=== PATIENT | female | born 1950 | race Caucasian/White ===

== ENCOUNTER 2017-01-15 07:36 | Emergency (ER) | payer BC ==
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
[2017-01-15] MEDS ORDERED: 0.9 % SODIUM CHLORIDE 1,000 ML BAG IV ONE (08:06)
[2017-01-15 08:19] LABS: BASO % 0.5 % (0-6); EOS % 3.7 % (0-6); GRAN % 45.8 % (47-80); HEMATOCRIT 37.1 % (35.0-47.0); LYMPH % 44.5 % (16-45); MEAN CELL VOLUME 94.9 fl (81-97); MEAN CORPUSCULAR HEMOGLOBIN 33.2 pg (27-33); MEAN PLATELET VOLUME 10.1 fl (7.4-10.4); MONO % 5.5 % (0-9); PLATELET COUNT 100 K/uL (130-400); RED BLOOD COUNT 3.91 M/uL (3.80-5.40); WHITE BLOOD COUNT W/O DIFF 2.2 K/uL (4.2-12.2)
[2017-01-15 08:32] LABS: ALB/GLOB RATIO 1.8 (1.1-1.8); ALBUMIN 4.1 gm/dL (3.5-5.0); ALKALINE PHOSPHATASE 77 U/L (38-126); ALT/SGPT 35 U/L (9-52); ANION GAP 14.7 (7-16); AST/SGOT 20 U/L (14-36); BILIRUBIN,TOTAL 0.48 mg/dL (0.2-1.3); BLOOD UREA NITROGEN 21 mg/dL (7-17); CARBON DIOXIDE 21.3 mmol/L (22-30); CREATINE PHOSPHOKINASE 34 U/L (30-135); CREATININE 1.1 mg/dL (0.52-1.04); EST GLOMERULAR FILTRATION RATE 53 ml/min; GLUCOSE,RANDOM 79 mg/dL (70-110); INR 0.97; PARTIAL THROMBOPLASTIN TIME 25.4 SECONDS (24.5-39.1); TOTAL PROTEIN 6.4 gm/dL (6.3-8.2)
[2017-01-15 08:46] LABS: CKMB 0.3 ug/L (0-6)
[2017-01-15 08:47] LABS: TROPONIN I < 0.012 ng/mL (0.00-0.034)
== END 2017-01-15 10:40 | disposition home or self-care (01) ==
LOC: ER 07:36
DX: R53.1 Weakness (principal); R42 Dizziness and giddiness; R51 Headache; H53.149 Visual discomfort, unspecified
CPT/HCPCS: 70450; 80053; 82550; 82553; 84484; 85025; 85610; 85730; 93005; 93010; 96360; 96361; 99284; J7030

== ENCOUNTER 2017-01-24 06:06 | Emergency (ER) | payer BC ==
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
[2017-01-24] MEDS ORDERED: KETOROLAC 30 MG/ML VIAL IM ONE (06:42)
[2017-01-24] MEDS ORDERED: PROMETHAZINE HCL 25 MG/ML VIAL IM ONE (06:42)
[2017-01-24 06:48] LABS: AMPHETAMINE SCREEN URINE NOT DETECTED; BARBITURATE SCREEN URINE DETECTED; BENZODIAZEPINE SCREEN URINE NOT DETECTED; COCAINE SCREEN URINE NOT DETECTED; METHADONE SCREEN URINE NOT DETECTED; METHAMPHETAMINE SCREEN NOT DETECTED; OPIATE SCREEN URINE NOT DETECTED; OXYCODONE SCREEN URINE NOT DETECTED; PHENCYCLIDINE SCREEN URINE NOT DETECTED; PROPOXYPHENE SCREEN URINE NOT DETECTED; THC SCREEN URINE NOT DETECTED; TRICYCLIC ANTIDEPRESSANT SCRN DETECTED
== END 2017-01-24 07:29 | disposition home or self-care (01) ==
LOC: ER 06:06
DX: R51 Headache (principal); R11.0 Nausea
CPT/HCPCS: 99283 ×2; 96372; 80305; J1885; J2550

== ENCOUNTER 2017-03-13 21:32 | Emergency (ER) | payer BC ==
[2017-03-13] MEDS ORDERED: PROMETHAZINE HCL 25 MG/ML VIAL IM ONE (21:38)
[2017-03-13] MEDS ORDERED: KETOROLAC 30 MG/ML VIAL IM ONE (21:38)
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
== END 2017-03-13 22:34 | disposition home or self-care (01) ==
LOC: ER 21:32
DX: G43.909 Migraine, unspecified, not intractable, without status migrainosus (principal); H53.149 Visual discomfort, unspecified
CPT/HCPCS: 99283 ×2; 96372; J1885; J2550

== ENCOUNTER 2017-04-15 22:14 | Emergency (ER) | payer BC ==
[2017-04-15] MEDS ORDERED: KETOROLAC 30 MG/ML VIAL IM ONE (23:46)
[2017-04-15] MEDS ORDERED: PROMETHAZINE HCL 25 MG/ML VIAL IM ONE (23:46)
[2017-04-16] MEDS ORDERED: DIPHENHYDRAMINE HCL IV 50 MG/ML VIAL IM ONE (00:28)
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
== END 2017-04-16 01:05 | disposition home or self-care (01) ==
LOC: ER 22:14
DX: G43.911 Migraine, unspecified, intractable, with status migrainosus (principal); R11.0 Nausea
CPT/HCPCS: 99283; 96372; 99284; J1885; J1200; J2550

== ENCOUNTER 2017-06-04 22:19 | Emergency (ER) | payer BC ==
[2017-06-04] MEDS ORDERED: PROMETHAZINE HCL 25 MG/ML VIAL IVP ONE (22:43)
[2017-06-04] MEDS ORDERED: KETOROLAC 30 MG/ML VIAL IVP ONE (22:43)
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
[2017-06-04 22:55] LABS: BASO % 0.5 % (0-6); EOS % 1.1 % (0-6); GRAN % 62.4 % (47-80); HEMATOCRIT 41.3 % (35.0-47.0); HEMOGLOBIN 14.8 gm/dl (11.6-16.0); LYMPH % 29.2 % (16-45); MEAN CELL VOLUME 92.8 fl (81-97); MEAN CORPUSCULAR HEMOGLOBIN 33.3 pg (27-33); MEAN CORPUSCULAR HGB CONC 35.8 g/dl (32-36); MONO % 6.8 % (0-9); PLATELET COUNT 107 K/uL (130-400); RED BLOOD COUNT 4.45 M/uL (3.80-5.40); RED CELL DISTRIBUTION WIDTH 12.4 % (11.5-14.5); WHITE BLOOD COUNT W/O DIFF 3.7 K/uL (4.2-12.2)
[2017-06-04 23:06] LABS: ALBUMIN 5.1 gm/dL (3.5-5.0); ANION GAP 15.5 (7-16); BILIRUBIN,TOTAL 0.83 mg/dL (0.2-1.3); CARBON DIOXIDE 18.5 mmol/L (22-30); CREATININE 1.1 mg/dL (0.52-1.04)
[2017-06-04 23:08] LABS: INR 0.98; PARTIAL THROMBOPLASTIN TIME 24.6 SECONDS (24.5-39.1); PROTHROMBIN TIME (PATIENT) 10.6 SECONDS (9.5-12.1)
[2017-06-04] MEDS ORDERED: LORAZEPAM 2 MG/ML VIAL IV ONE (23:17)
[2017-06-04 23:33] LABS: URINE APPEARANCE CLEAR; URINE BILIRUBIN NEGATIVE (NEGATIVE); URINE BLOOD NEGATIVE (NEGATIVE); URINE COLOR YELLOW; URINE GLUCOSE (UA) NEGATIVE (NEGATIVE); URINE KETONE NEGATIVE (NEGATIVE); URINE LEUKOCYTE ESTERASE SMALL (NEGATIVE); URINE NITRITE NEGATIVE (NEGATIVE); URINE PROTEIN NEGATIVE (NEGATIVE); URINE UROBILINOGEN 0.2 E.U./dL (0.20 - 1.00)
[2017-06-04 23:40] LABS: URINE RBC 0 - 2 (NONE SEEN); URINE WBC 0 - 2 (0-2/hpf)
[2017-06-04 23:41] LABS: URINE BACTERIA FEW
[2017-06-05] MEDS ORDERED: LORAZEPAM 2 MG/ML VIAL IV ONE (00:09)
--- NOTE | 2017-06-05 12:06 | CT SCAN REPORT ---
EXAM: CT OF THE BRAIN HISTORY: MIGRAINE HEADACHE. TECHNIQUE: CT of the brain without contrast was obtained. Comparison: Prior CT of the brain from 01/15/17. FINDINGS: The globes are intact. The paranasal sinuses and mastoid air cells are unremarkable. No displaced or depressed skull fracture. No intra or extraaxial hemorrhage. CT is limited for the evaluation of acute infarct. No CT evidence for large or territorial acute infarct. No mass or midline shift. Mild age appropriate atrophy. IMPRESSION: MILD ATROPHY. NEGATIVE FOR ACUTE INTRACRANIAL ABNORMALITY. JOB NUMBER: [id number] [facility]
== END 2017-06-05 01:48 | disposition home or self-care (01) ==
LOC: ER 22:19
DX: G43.909 Migraine, unspecified, not intractable, without status migrainosus (principal); R11.2 Nausea with vomiting, unspecified; F41.9 Anxiety disorder, unspecified; I45.10 Unspecified right bundle-branch block
CPT/HCPCS: 99284 ×2; 96376; 96374; 96375; 85025; 85730; 85610; 80076; 80048; 81001; 70450; J1885; J2060 ×2; J2550

== ENCOUNTER 2017-08-20 13:29 | Emergency (ER) | payer BC ==
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
[2017-08-20] MEDS: PROMETHAZINE HCL 25 MG/ML VIAL IM ONE ×2 (13:52→15:12)
[2017-08-20] MEDS: KETOROLAC 30 MG/ML VIAL IM ONE (13:53)
== END 2017-08-20 15:38 | disposition home or self-care (01) ==
LOC: ER 13:29
DX: G43.909 Migraine, unspecified, not intractable, without status migrainosus (principal); H53.149 Visual discomfort, unspecified; R11.0 Nausea
CPT/HCPCS: 99283 ×2; 96372; J1885; J2550

== ENCOUNTER 2017-09-20 20:51 | Emergency (ER) | payer BC ==
[2017-09-20 21:09] LABS: URINE BILIRUBIN NEGATIVE (NEGATIVE); URINE BLOOD LARGE (NEGATIVE); URINE GLUCOSE (UA) NEGATIVE (NEGATIVE); URINE KETONE NEGATIVE (NEGATIVE); URINE LEUKOCYTE ESTERASE LARGE (NEGATIVE); URINE NITRITE NEGATIVE (NEGATIVE); URINE UROBILINOGEN 0.2 E.U./dL (0.20 - 1.00)
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
[2017-09-20 21:12] LABS: URINE APPEARANCE CLOUDY; URINE COLOR AMBER
[2017-09-20] MEDS ORDERED: NITROFURANTOIN MONO 100 MG CAPSULE PO ONE (21:13)
[2017-09-20 21:15] LABS: URINE BACTERIA 1+; URINE EPITHELIAL CELLS 0 - 2 (FEW); URINE RBC 21 - 35 (NONE SEEN); URINE WBC >50 (0-2/hpf)
== END 2017-09-20 21:28 | disposition home or self-care (01) ==
LOC: ER 20:51
DX: N30.01 Acute cystitis with hematuria (principal)
CPT/HCPCS: 81001; 99282

== ENCOUNTER 2017-12-20 15:49 | Emergency (ER) | payer BC ==
[2017-12-20] MEDS ORDERED: ONDANSETRON HCL IV 4 MG/2 ML VIAL IV ONE (16:18)
[2017-12-20] MEDS ORDERED: 0.9 % SODIUM CHLORIDE 1,000 ML BAG IV ONE (16:18)
[2017-12-20] MEDS ORDERED: MORPHINE SULFATE 5 MG/ML PFS IVP ONE ×2 (16:33→17:57)
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
[2017-12-20 17:21] LABS: BASO % 0.6 % (0-6); EOS % 0.9 % (0-6); GRAN % 67.3 % (47-80); HEMATOCRIT 38.9 % (35.0-47.0); HEMOGLOBIN 13.8 gm/dl (11.6-16.0); LYMPH % 24.3 % (16-45); MEAN CORPUSCULAR HEMOGLOBIN 33.3 pg (27-33); MEAN CORPUSCULAR HGB CONC 35.5 g/dl (32-36); MEAN PLATELET VOLUME 10.4 fl (7.4-10.4); MONO % 6.9 % (0-9); PLATELET COUNT 117 K/uL (130-400); RED BLOOD COUNT 4.14 M/uL (3.80-5.40); RED CELL DISTRIBUTION WIDTH 12.6 % (11.5-14.5); WHITE BLOOD COUNT W/O DIFF 3.3 K/uL (4.2-12.2)
[2017-12-20 17:25] LABS: URINE APPEARANCE CLEAR; URINE BILIRUBIN NEGATIVE (NEGATIVE); URINE BLOOD TRACE-I (NEGATIVE); URINE COLOR YELLOW; URINE GLUCOSE (UA) NEGATIVE (NEGATIVE); URINE KETONE NEGATIVE (NEGATIVE); URINE LEUKOCYTE ESTERASE NEGATIVE (NEGATIVE); URINE NITRITE NEGATIVE (NEGATIVE); URINE PROTEIN NEGATIVE (NEGATIVE); URINE UROBILINOGEN 0.2 E.U./dL (0.20 - 1.00)
[2017-12-20 17:42] LABS: URINE EPITHELIAL CELLS 0 - 2 (FEW); URINE RBC 0 - 2 (NONE SEEN); URINE WBC NONE SEEN (0-2/hpf)
[2017-12-20 17:44] LABS: BLOOD UREA NITROGEN 9 mg/dL (8-23)
[2017-12-20 17:45] LABS: CREATININE 0.9 mg/dL (0.5-0.9); EST GLOMERULAR FILTRATION RATE > 60 mL/min; TOTAL PROTEIN 7.8 g/dL (6.6-8.7)
[2017-12-20 17:47] LABS: GLUCOSE,RANDOM 111 mg/dL (74-109)
[2017-12-20 17:50] LABS: ALBUMIN 5.2 g/dL (4.0-5.0); ALKALINE PHOSPHATASE 71 U/L (35-104); ALT/SGPT 21 U/L (<33); AST/SGOT 22 U/L (10.0-35.0); LIPASE 40 U/L (13-60)
[2017-12-20] MEDS ORDERED: ONDANSETRON HCL IV 4 MG/2 ML VIAL IVP ONE (18:57)
--- NOTE | 2017-12-21 08:39 | CT SCAN REPORT ---
EXAM: CT SCAN OF THE ABDOMEN AND PELVIS HISTORY: PATIENT HAS LOSS OF APPETITE AND DIARRHEA. TECHNIQUE: Serial axial CT scan of the abdomen and pelvis was performed at 3.75 mm intervals from the dome of the diaphragm down to the pubic symphysis without the use of intravenous or oral contrast. Comparison CT scan of the abdomen and pelvis dated 12/15/15. FINDINGS: The lung windows of the lung bases demonstrate no CT evidence of a focal infiltrate or pleural effusion. The visualized heart size and contour is within normal limits. The liver demonstrates a 5.5 mm hypodensity within the right hepatic lobe which is unchanged with respect to the prior CT scan. The spleen, bilateral adrenal glands, and pancreas are unremarkable. The gallbladder is somewhat distended. There is questionable gallbladder wall thickening with questionable mild pericholecystic fat stranding. These findings may indicate mild acute cholecystitis. If there is further clinical concern then ultrasound examination of the right upper quadrant of the abdomen can be obtained for further evaluation. The bilateral kidneys demonstrate no CT evidence of hydronephrosis or hydroureter. No renal or ureteral calculi are noted. The contour and caliber of the abdominal aorta is within normal limits. There is no CT evidence of retroperitoneal, pelvic or inguinal lymphadenopathy. The bowel gas pattern is nonspecific and nonobstructive. Multiple colonic diverticula are noted without CT evidence of diverticulitis. There is no CT evidence of free intraperitoneal fluid or free intraperitoneal air. The urinary bladder and uterus are unremarkable. Bone windows demonstrate no CT evidence of a fracture or dislocation of the visualized osseous structures. IMPRESSION: DISTENDED GALLBLADDER WITH QUESTIONABLE WALL THICKENING AND FAT STRANDING. THESE FINDINGS MAY INDICATE CHOLECYSTITIS. IF THERE IS FURTHER CLINICAL CONCERN THEN AN ULTRASOUND EXAMINATION OF THE RIGHT UPPER QUADRANT CAN BE OBTAINED FOR FURTHER EVALUATION. JOB NUMBER: [id number] [facility]
== END 2017-12-20 19:32 | disposition home or self-care (01) ==
LOC: ER 15:49
DX: K81.0 Acute cholecystitis (principal); R11.2 Nausea with vomiting, unspecified; R19.7 Diarrhea, unspecified; I10 Essential (primary) hypertension
CPT/HCPCS: 99284 ×2; 96376; 96360; 96374; 96375; 83690; 85025; 80053; 81001; 74176; J2405; J2270; J7030

== ENCOUNTER 2017-12-21 08:15 | Emergency (ER) | payer BC ==
[2017-12-21] MEDS ORDERED: 0.9 % SODIUM CHLORIDE 1,000 ML BAG IV ONE (08:24)
[2017-12-21 08:56] LABS: HEMATOCRIT 39.1 % (35.0-47.0); HEMOGLOBIN 13.7 gm/dl (11.6-16.0); MEAN CELL VOLUME 95.8 fl (81-97); MEAN CORPUSCULAR HEMOGLOBIN 33.6 pg (27-33); MEAN PLATELET VOLUME 10.5 fl (7.4-10.4); PLATELET COUNT 96 K/uL (130-400); RED BLOOD COUNT 4.08 M/uL (3.80-5.40); RED CELL DISTRIBUTION WIDTH 12.7 % (11.5-14.5)
[2017-12-21 08:59] LABS: URINE APPEARANCE SL CLOUDY; URINE BILIRUBIN SMALL (NEGATIVE); URINE BLOOD NEGATIVE (NEGATIVE); URINE COLOR YELLOW; URINE GLUCOSE (UA) NEGATIVE (NEGATIVE); URINE KETONE NEGATIVE (NEGATIVE); URINE LEUKOCYTE ESTERASE NEGATIVE (NEGATIVE); URINE NITRITE NEGATIVE (NEGATIVE); URINE UROBILINOGEN 0.2 E.U./dL (0.20 - 1.00)
[2017-12-21 09:07] LABS: BILIRUBIN,TOTAL 0.6 mg/dL (0.2-1.0)
[2017-12-21 09:08] LABS: TOTAL PROTEIN 7.3 g/dL (6.6-8.7)
[2017-12-21 09:13] LABS: ALB/GLOB RATIO 2.3 (1.1-1.8); ALBUMIN 5.1 g/dL (4.0-5.0)
[2017-12-21 09:25] LABS: PLATELET ESTIMATE DECREASED (NORMAL)
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
--- NOTE | 2017-12-21 21:46 | ULTRASOUND REPORT ---
EXAM: ULTRASOUND ABDOMEN, COMPLETE HISTORY: RIGHT UPPER QUADRANT PAIN. TECHNIQUE: Complete transabdominal ultrasound. COMPARISON: CT from 12/20/17. FINDINGS: Tiny hypodensity seen in the liver on CT is not appreciated on the ultrasound. No focal liver lesions. No gallstones or gallbladder wall thickening. The CBD measures 6.4 mm. Visualized portions of the pancreas are unremarkable. The spleen is unremarkable at 10 cm. The right kidney measures 9 x 4 cm, the left 10 x 4 cm. No renal calculus, mass, or hydronephrosis. The visualized portions of the abdominal aorta and inferior vena cava are unremarkable. No free fluid. IMPRESSION: TINY HYPODENSITY SEEN IN THE LIVER ON CT IS NOT APPRECIATED ON THE ULTRASOUND. UNREMARKABLE COMPLETE TRANSABDOMINAL ULTRASOUND. JOB NUMBER: [id number] [facility]
== END 2017-12-21 13:34 | disposition home or self-care (01) ==
LOC: ER 08:15
DX: R10.11 Right upper quadrant pain (principal); R11.2 Nausea with vomiting, unspecified; R63.4 Abnormal weight loss
CPT/HCPCS: 76700; 80053; 81003; 83690; 85027; 99284; J7030

== ENCOUNTER 2018-04-09 19:41 | Emergency (ER) | payer BC ==
[2018-04-09 20:05] LABS: BASO % 0.6 % (0-6); EOS % 2.4 % (0-6); HEMATOCRIT 41.6 % (35.0-47.0); HEMOGLOBIN 14.6 gm/dl (11.6-16.0); LYMPH % 38.8 % (16-45); MEAN CELL VOLUME 95.6 fl (81-97); MEAN CORPUSCULAR HEMOGLOBIN 33.6 pg (27-33); MEAN CORPUSCULAR HGB CONC 35.1 g/dl (32-36); MEAN PLATELET VOLUME 10.2 fl (7.4-10.4); MONO % 6.2 % (0-9); PLATELET COUNT 135 K/uL (130-400); RED BLOOD COUNT 4.35 M/uL (3.80-5.40); RED CELL DISTRIBUTION WIDTH 12.8 % (11.5-14.5); WHITE BLOOD COUNT W/O DIFF 3.4 K/uL (4.2-12.2)
[2018-04-09] MEDS ORDERED: ASPIRIN 81 MG CHEWABLE TABLET PO ONE (20:11)
[2018-04-09 20:16] LABS: BLOOD UREA NITROGEN 9 mg/dL (8-23); CREATININE 1.2 mg/dL (0.5-0.9); EST GLOMERULAR FILTRATION RATE 48 mL/min
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
[2018-04-09 20:19] LABS: GLUCOSE,RANDOM 117 mg/dL (74-109)
[2018-04-09 20:22] LABS: CREATINE PHOSPHOKINASE 166 U/L (26-192)
[2018-04-09 20:23] LABS: CKMB 3.2 ng/mL (<3.77)
[2018-04-09] MEDS: NITROGLYCERIN 0.4MG SL TABLET #25 BTL SL PRN ×2 (20:37→20:42)
[2018-04-09] MEDS ORDERED: FENTANYL PF 100MCG/2ML VIAL IVP ONE (20:52)
[2018-04-09] MEDS ORDERED: DIPHENHYDRAMINE HCL 50 MG/ML VIAL IVP ONE (20:52)
== END 2018-04-09 22:07 | disposition short-term general hospital (02) ==
LOC: ER 19:41
DX: R07.2 Precordial pain (principal); I25.118 Atherosclerotic heart disease of native coronary artery with other forms of angina pectoris; R51 Headache; Z95.5 Presence of coronary angioplasty implant and graft
CPT/HCPCS: 71046; 80048; 82550; 82553; 84484; 85025; 85379; 93005; 93010; 96374; 96375; 99285; J1200

== ENCOUNTER 2018-05-03 | Emergency (ER) | payer BC ==
[2018-05-03] MEDS ORDERED: PROMETHAZINE HCL 25 MG/ML VIAL IM ONE (00:22)
[2018-05-03] MEDS ORDERED: KETOROLAC 30 MG/ML VIAL IM ONE (00:22)
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
[2018-05-03] MEDS ORDERED: ONDANSETRON 4 MG ODT TABLET SL ONE (01:06)
== END 2018-05-03 01:30 | disposition home or self-care (01) ==
LOC: ER
DX: G43.909 Migraine, unspecified, not intractable, without status migrainosus (principal); R11.0 Nausea; I34.0 Nonrheumatic mitral (valve) insufficiency; E03.9 Hypothyroidism, unspecified; D47.3 Essential (hemorrhagic) thrombocythemia
CPT/HCPCS: 96372; 99283; J1885; J2550

== ENCOUNTER 2018-07-17 21:37 | Emergency (ER) | payer BC ==
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
[2018-07-17] MEDS: KETOROLAC 60 MG/2 ML VIAL IM STA (21:59)
[2018-07-17] MEDS: ONDANSETRON 4 MG ODT TABLET SL ONE (21:59)
[2018-07-17] MEDS: PROMETHAZINE HCL 25 MG/ML VIAL IM ONE (22:04)
[2018-07-17 22:27] LABS: URINE APPEARANCE CLEAR; URINE BILIRUBIN NEGATIVE (NEGATIVE); URINE BLOOD NEGATIVE (NEGATIVE); URINE COLOR YELLOW; URINE GLUCOSE (UA) NEGATIVE (NEGATIVE); URINE KETONE NEGATIVE (NEGATIVE); URINE LEUKOCYTE ESTERASE TRACE (NEGATIVE); URINE NITRITE NEGATIVE (NEGATIVE); URINE PROTEIN NEGATIVE (NEGATIVE); URINE UROBILINOGEN 0.2 E.U./dL (0.20 - 1.00)
[2018-07-17 22:29] LABS: URINE BACTERIA NONE SEEN; URINE RBC 0 - 2 (NONE SEEN); URINE WBC 0 - 2 (0-2/hpf)
== END 2018-07-17 23:21 | disposition home or self-care (01) ==
LOC: ER 21:37
DX: R35.0 Frequency of micturition (principal); R51 Headache; Z79.01 Long term (current) use of anticoagulants
CPT/HCPCS: 81001; 96372; 99283; J1885; J2550

== ENCOUNTER 2018-08-03 18:11 | Emergency (ER) | payer BC ==
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
[2018-08-03] MEDS ORDERED: KETOROLAC 30 MG/ML VIAL IM ONE (19:27)
[2018-08-03] MEDS ORDERED: DIPHENHYDRAMINE HCL 50 MG/ML VIAL IM ONE (19:51)
== END 2018-08-03 20:15 | disposition home or self-care (01) ==
LOC: ER 18:11
DX: G43.909 Migraine, unspecified, not intractable, without status migrainosus (principal); H53.149 Visual discomfort, unspecified; Z91.81 History of falling; Z79.01 Long term (current) use of anticoagulants
CPT/HCPCS: 99283; 96372; 99284; 70450; J1885; J1200